=== PATIENT | male | born 2000 | race Two or more races ===

== ENCOUNTER 2020-01-20 06:58 | Outpatient (NON) | payer OTHER, SELFPAY ==
[2020-01-20 23:27] LABS: SARS-CoV-2 RNA PCR Negative
== END 2020-01-20 06:59 ==
PROVIDERS: PCP Family Medicine; Visit Provider Physician Assistant Medical
DX: Z20.828 Contact with and (suspected) exposure to other viral communicable diseases (principal); R09.89 Other specified symptoms and signs involving the circulatory and respiratory systems
CPT/HCPCS: 87635; C9803; U0003